=== PATIENT | male | born 1975 | race Caucasian/White ===

== ENCOUNTER 2024-10-15 08:11 | Day surgery (SDC) | payer BC ==
[~2024-10-15 08:11] MED LIST: Dexamethasone 4 MG/ML SDV ONE; Glycopyrrolate 0.2 MG/ML 5 ML MDV ONE; Ondansetron 4 MG/2 ML SDV ONE; Propofol 200 MG/20 ML SDV ONE; Succinylcholine 200 MG/10 ML MDV ONE; fentaNYL 250 MCG/5 ML SDV ONE
[2024-10-15 08:29] LABS: PLATELET COUNT,PLT 231.0 K/uL (130-375); RED BLOOD CELL COUNT 5.05 M/uL (4.14-5.76); WHITE BLOOD CELL COUNT,WBC 6.6 K/uL (3.2-11.0)
[2024-10-15 08:48] LABS: BLOOD UREA NITROGEN,BUN 22 mg/dL (7-18); CARBON DIOXIDE,CO2 29 mmol/L (21-32); CHLORIDE,CL 103 mmol/L (100-108); CREATININE 0.8 mg/dL (0.8-1.3); ESTIMATED GFR 107 mL/min (>60); GLUCOSE RANDOM 165 mg/dL (74-106); POTASSIUM,K 4.3 mmol/L (3.6-5.2); SODIUM,NA 140 mmol/L (140-148)
[2024-10-15] MEDS: Nozin Nasal Sanitizer NASBOTH ONE (09:06)
[2024-10-15] MEDS: Lactated Ringers 1,000 ML IV SCH (09:25)
[2024-10-15] MEDS ORDERED: fentaNYL 250 MCG/5 ML SDV ONE (10:25)
[2024-10-15] MEDS ORDERED: Lactated Ringers 1,000 ML ONE (10:47)
[2024-10-15] MEDS ORDERED: fentaNYL 100 MCG/2 ML SDV ONE (13:24)
[2024-10-15] MEDS: Acetaminophen/oxyCODONE 325-5 MG Tab PO PRN (14:49)
== END 2024-10-15 15:35 | disposition home or self-care (01) ==
LOC: JP.SDS 08:11
PROVIDERS: ATTEND Specialist
DX: D48.0 Neoplasm of uncertain behavior of bone and articular cartilage (principal); M23.42 Loose body in knee, left knee; I10 Essential (primary) hypertension; E66.9 Obesity, unspecified; E11.9 Type 2 diabetes mellitus without complications; Z88.8 Allergy status to other drugs, medicaments and biological substances
CPT/HCPCS: 01400-QZ; 36415; 80048; 85027; 88305; A9270-GY; C1713; J0330; J0665; J0690; J1100; J1596; J1920; J2405; J2704; J2710; J3010; J3490; J7120